=== PATIENT | female | born 1975 | race Caucasian/White ===

== ENCOUNTER → 2017-07-02 | Outpatient (CLI) | payer BC, OTHER ==
[~2017-07-02] MED LIST: CEPH500C PO; FOLI0.8T PO; FRS325T PO; GLYB2.5T4 PO; PREN1TAB39 PO
--- NOTE | 2017-07-02 15:55 | Diagnostic Imaging Report ---
INDICATION: Menorrhagia. FINDINGS: Uterus measures 9.8 x 7.1 x 4.1 cm. Endometrial stripe is thickened at 1.2 cm. The right ovary measures 3.8 x 2.5 x 2.5 cm. There is a simple cyst in the right ovary measuring 2.4 x 2 cm. The left ovary is not demonstrated on this study. There is no free fluid. There are prominent venous structures in the left adnexa which may be secondary to pelvic venous congestion. IMPRESSION: 1. Abnormal thickening of the endometrium. 2. Left ovary was not demonstrated. Benign cyst noted in the right ovary. Dictated by: Dictated on workstation # [id number]
== END ==
LOC: RAD 12:49
PROVIDERS: ATTEND Nurse Practitioner Family
DX: Z12.31 Encounter for screening mammogram for malignant neoplasm of breast (principal); N83.202 Unspecified ovarian cyst, left side; R93.8 Abnormal findings on diagnostic imaging of other specified body structures
CPT/HCPCS: 76830; 76856